=== PATIENT | male | born 2000 | race Two or more races ===

== ENCOUNTER 2021-07-05 22:46 | Emergency (ER) | payer BC ==
[~2021-07-05] VITALS: Ht 180.3 cm; Wt 72.6 kg
== END 2021-07-06 03:03 ==
LOC: ER 22:46
DX: J06.9 Acute upper respiratory infection, unspecified (principal); Z20.822 Contact with and (suspected) exposure to COVID-19; I73.00 Raynaud's syndrome without gangrene